=== PATIENT | female | born 2000 | race Caucasian/White ===

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

== ENCOUNTER 2018-08-08 18:48 | Emergency (ER) | payer BC, OTHER ==
[2018-08-08 18:54] VITALS: TEMP 98.9
[2018-08-08 19:24] VITALS: BP 123/65; PULSE 92; RESP 18
--- NOTE | 2018-08-08 19:25 | ED ---
General Adult HPI - General Chief complaint: ENT Stated complaint: ear pain Time Seen by Provider: 08/08/18 19:00 Source: patient, RN notes reviewed, old records reviewed Mode of arrival: ambulatory Limitations: no limitations - History of Present Illness Initial comments: 18-year-old female patient with no pertinent past medical history presents to ED with chief complaint of right ear pain and some drainage since Saturday. Patient reports that at that time she was seen by urgent care and placed on Augmentin as well as azithromycin. Patient states that she continues to have pain and has had some mild decreased hearing in her right ear. Patient does have gross hearing in right ear. Patient denies all other complaints at this time. Patient states that she is not . Systemic: Pt denies fatigue, myalgia, fever/chills, rash. Pt denies weakness, night sweats, weight loss. Neuro: Pt denies headache, visual disturbances, syncope or pre-syncope. HEENT: Pt denies ocular discharge or irritation, rhinorrhea, pharyngitis or notable lymphadenopathy. Cardiopulmonary: Pt denies chest pain, SOB, heart palpitations, dyspnea on exertion. Abdominal/GI: Pt denies abdominal pain, n/v/d. : Pt denies dysuria, burning w/ urination, frequency/urgency. Denies new onset urinary or bowel incontinence. MSK: Pt denies myalgia, loss of strength or function in extremities. Neuro: Pt denies new onset weakness, paresthesias. - Related Data Home Medications Medication Instructions Recorded Confirmed Etonogestrel [Nexplanon] 1 implant SQ [id number] 05/26/17 09/07/17 Previous Rx's Medication Instructions Recorded Acetaminophen with Codeine 1 tab PO Q4H #14 tab 09/08/17 [Tylenol w/codeine #3] Cefdinir 300 mg PO Q12HR 10 Days cap 08/08/18 Allergies Allergy/AdvReac Type Severity Reaction Status Date / Time No Known Allergies Allergy Verified 08/08/18 18:55 Review of Systems ROS Statement: Those systems with pertinent positive or pertinent negative responses have been documented in the HPI. ROS Other: All systems not noted in ROS Statement are negative. Past Medical History Past Medical History: No Reported History History of Any Multi-Drug Resistant Organisms: None Reported Past Surgical History: Adenoidectomy, Ear Surgery Past Psychological History: No Psychological Hx Reported Smoking Status: Light tobacco smoker Past Alcohol Use History: None Reported Past Drug Use History: None Reported - Past Family History Mother Family Medical History: No Reported History General Exam - General Exam Comments Initial Comments: Constitutional: NAD, AOX3, Pt has pleasant affect. HEENT: NC/AT, trachea midline, neck supple, no lymphadenopathy. Posterior pharynx non erythematous, without exudates. External ears appear normal, without discharge. Right TM mildly erythematous, no bulging perforation or otorrhea noted. Left TM non-erythematous and bulging no perforation or otorrhea. Gross hearing intact bilaterally. Mucous membranes moist. Eyes PERRLA, EOM intact. There is no scleral icterus. No pallor noted. Cardiopulmonary: RRR, no murmurs, rubs or gallops, no JVD noted. Lungs CTAB in anterior and posterior taylor. No peripheral edema. Abdominal exam: Abdomen soft and non-distended. Abdomen non-tender to palpation in all 4 quadrants. Bowel sounds active in LLQ. No hepatosplenomegaly. No ecchymosis Neuro: CN II-XII intact. No nuchal rigidity. No focal deficit or facial droop. MSK: No posterior calf tenderness bilaterally, homans sign negative bilaterally. Posterior tibialis and radial pulse +2 bilaterally. Sensation intact in upper and lower extremities. Full active ROM in upper and lower extremities, 5/5 stregnth. Limitations: no limitations Course Vital Signs 08/08/18 18:51 Temperature 98.9 F Pulse Rate 114 H Respiratory 16 Rate Blood Pressure 122/69 O2 Sat by Pulse 100 Oximetry Medical Decision Making - Medical Decision Making 18-year-old female patient presents to ED with 5 days of right ear pain as well as otorrhea. Patient has not antibiotics azithromycin as well as Augmentin. Patient does complain of some mild decreased hearing out of right ear, gross hearing intact. Physical exam did display some mild erythema right tympanic membrane, no perforation or otorrhea noted. Patient now discharged with ENT referral as well as antibiotic changed to Cefdinir. Patient to follow up with primary care provider in 1-2 days. Patient return to ER condition worsens. Case discussed with Dr. Russo. Disposition Clinical Impression: Otalgia, right ear Disposition: HOME SELF-CARE Condition: Stable Instructions (If sedation given, give patient instructions): Earache (ED) Additional Instructions: Patient to adhere to previously discussed treatment plan and will take medication(s) as directed. Patient to follow up with PCP in 1-2 days. Patient to return to ED if symptoms do not improve. Please take medication as directed. Please follow-up with ENT referral tomorrow. Please return to ER if condition worsens. Stop taking other antibiotics. Prescriptions: Cefdinir 300 mg PO Q12HR 10 Days cap Is patient prescribed a controlled substance at d/c from ED?: No Referrals: None,Stated [Primary Care Provider] - 1-2 days [facility] [NON-STAFF] - 1-2 days Jatinder Barriga DO [Doctor of Osteopathic Medicine] - 1-2 days
== END 2018-08-08 19:38 | disposition home or self-care (01) ==
LOC: EC 18:48
DX: H92.01 Otalgia, right ear (principal); F17.200 Nicotine dependence, unspecified, uncomplicated; Z79.3 Long term (current) use of hormonal contraceptives
CPT/HCPCS: 99283